=== PATIENT | male | born 1995 | race African-American/Black ===

== ENCOUNTER 2016-12-02 01:15 | Emergency (ER) | payer BC ==
[~2016-12-02] VITALS: Ht 182.9 cm; Wt 79.4 kg
--- NOTE | 2016-12-02 01:50 | PHYS DOC ---
Past Medical History Past Medical History: Asthma Past Surgical History: Other Additional Past Surgical Histo: right eye as child Additional Information: marijuana Alcohol Use: Heavy Additional Information: regularly Drug Use: Marijuana Adult General Chief Complaint Chief Complaint: LACERATION/AVULSION HPI HPI Patient is a 21 year old male who presents with complaint of facial injuries after suffering a fall. Patient states that he suffered a cut to his chin and also injured his teeth. The patient states "I was acting like a fool and I fell and hit my chin on concrete." Patient does admit to alcohol use tonight. Patient is having pain to his chin into his teeth. Patient also suffered a cut on the right side of his bottom lip. Patient did not lose consciousness as a result of the fall. Patient denies any neck pain but does have headache from his fall. Review of Systems Review of Systems Constitutional: Denies fever or chills [] Eyes: Denies change in visual acuity, redness, or eye pain [] HENT: Laceration to chin, dental injury, laceration the lip [] Respiratory: Denies cough or shortness of breath [] Cardiovascular: Denies chest pain or edema [] GI: Denies abdominal pain, nausea, vomiting, bloody stools or diarrhea [] : Denies dysuria or hematuria [] Musculoskeletal: Denies back pain or joint pain [] Integument: Denies rash or skin lesions [] Neurologic: Headache, denies focal weakness or sensory changes [] Current Medications Current Medications Current Medications Medications (Trade) Dose Ordered Sig/Jesenia Start Time Stop Time Status Last Admin Dose Admin Ibuprofen (Motrin) 600 mg 1X ONCE 12/02/16 03:30 12/02/16 03:32 DC 12/02/16 03:28 600 MG Lidocaine/ Epinephrine (Xylocaine 1%-Epi 1:100,000) 20 ml 1X ONCE 12/02/16 02:15 12/02/16 02:16 Cancel Lidocaine/Sodium Bicarbonate (Buffered Lidocaine 1%) 20 ml 1X ONCE 12/02/16 02:30 12/02/16 02:31 DC 12/02/16 02:30 20 ML Allergies Allergies Allergies Coded Allergies Type Severity Reaction Last Updated Verified No Known Drug Allergies 12/17/13 No Physical Exam Physical Exam Constitutional: Alert, afebrile, no acute distress. [] HENT: Normocephalic, 2.5 cm avulsion injury to the inferior aspect of chin, 0.5 cm laceration to right lower lip through the vermilion border, bilateral external ears normal, oropharynx moist, enamel injury to teeth #8 and #9, no oral exudates, nose normal. [] Eyes: PERRLA, EOMI, conjunctiva normal, no discharge. [] Neck: Normal range of motion, no tenderness, supple, no stridor. [] Cardiovascular:Heart rate regular rhythm, no murmur [] Lungs & Thorax: Bilateral breath sounds clear to auscultation [] Abdomen: Bowel sounds normal, soft, no tenderness, no masses, no pulsatile masses. [] Skin: Warm, dry, no erythema, no rash. [] Back: No tenderness, no CVA tenderness. [] Extremities: No tenderness, no cyanosis, no clubbing, ROM intact, no edema. [] Neurologic: Alert and oriented X 3, normal motor function, normal sensory function, no focal deficits noted. [] Current Patient Data Vital Signs Vital Signs Date Time Temp Pulse Resp B/P (MAP) Pulse Ox O2 Delivery O2 Flow Rate FiO2 12/02/16 04:40 79 18 126/69 (88) 99 12/02/16 01:26 99.2 Room Air 99.2 EKG EKG Not performed [] Radiology/Procedures Radiology/Procedures Not performed [] Course & Med Decision Making Course & Med Decision Making Pertinent Labs and Imaging studies reviewed. (See chart for details) The patient's lacerations were repaired as outlined in the procedure note. The patient was advised to have his sutures removed in the next 5-7 days by either his primary doctor or he can return to the emergency department if needed. Patient also advised follow-up with a dentist in the next 2-3 days for his dental injury. Recommended return to the emergency department for any worsening symptoms. Patient patient's girlfriend provided head injury precautions. Patient was understanding and in agreement with treatment plan. Dragon Disclaimer Dragon Disclaimer This electronic medical record was generated, in whole or in part, using a voice recognition dictation system. Laceration Repair Lac Repair Indication: Chin and lip laceration Procedure: The patient was placed in the appropriate position and anesthesia around the laceration was achieved with injection of buffered lidocaine 1%. The area was then cleansed with saline soaked gauze and prepped with Betadine. The laceration of the chin was closed using horizontal mattress sutures on the edges and simple interrupted sutures in the middle. The lip laceration was closed with a single horizontal mattress suture bringing all flaps together. Total repaired wound length: 4 cm total. Other Items: Total suture count: 5 The patient tolerated the procedure without difficulty. Complications: None. Departure Departure Impression: Primary Impression: Chin laceration Additional Impressions: Lip laceration Dental injury Closed head injury Disposition: HOME, SELF-CARE Condition: IMPROVED Referrals: NO PCP (PCP) Patient Instructions: Dental Injury, Facial Laceration, Head Injury, Adult, Laceration Care, Adult Additional Instructions: Follow-up in 2-3 days with a dentist for evaluation of your dental injury. Follow-up in 5-7 days for removal of your facial stitches. Avoid any contact sports or other physical activity until your concussion symptoms have resolved. Return to emergency department for any worsening symptoms. Problem Qualifiers Primary Impression: Chin laceration Encounter type: initial encounter Qualified Codes: S01.81XA - Laceration without foreign body of other part of head, initial encounter Additional Impressions: Lip laceration Encounter type: initial encounter Qualified Codes: S01.511A - Laceration without foreign body of lip, initial encounter Dental injury Encounter type: initial encounter Qualified Codes: S09.93XA - Unspecified injury of face, initial encounter Closed head injury Encounter type: initial encounter Qualified Codes: S09.90XA - Unspecified injury of head, initial encounter CINDA CÁRDENAS MD Dec 02, 2016 01:50
[2016-12-02] MEDS ORDERED: LIDOCAINE 1%/EPI 1:100,000 20 ML VIAL. INJ ONE (02:15)
[2016-12-02] MEDS ORDERED: LIDOCAINE 1% / SOD BICARB 8.4% 20 ML VIAL. IJ ONE (02:30)
[2016-12-02] MEDS ORDERED: IBUPROFEN 600 MG TABLET. PO ONE (03:30)
[2016-12-02 04:40] VITALS: BP 126/69
== END 2016-12-02 04:58 | disposition home or self-care (01) ==
LOC: ER 01:15
DX: S01.81XA Laceration without foreign body of other part of head, initial encounter (principal); S01.511A Laceration without foreign body of lip, initial encounter; S09.93XA Unspecified injury of face, initial encounter; S09.90XA Unspecified injury of head, initial encounter; J45.909 Unspecified asthma, uncomplicated; W01.198A Fall on same level from slipping, tripping and stumbling with subsequent striking against other object, initial encounter; Y93.89 Activity, other specified; Y92.89 Other specified places as the place of occurrence of the external cause; Y99.8 Other external cause status
CPT/HCPCS: 12013; 99283-25